=== PATIENT | female | born 1955 | race Caucasian/White ===

== ENCOUNTER 2018-10-13 23:44 | Emergency (ER) | payer SELFPAY ==
[~2018-10-13] VITALS: Ht 165.1 cm; Wt 63.5 kg
[2018-10-13 23:44] VITALS: BP_SYST 105
[2018-10-13] MEDS ORDERED: NACL 0.9% 1,000 ML IV ONE (23:47)
[2018-10-14] MEDS ORDERED: ONDANSETRON HCL 4 MG/2 ML VIAL IVP ONE
[2018-10-14] MEDS ORDERED: FOLIC ACID 1 MG, THIAMINE HCL 100 MG, MAGNESIUM SULFATE 1 GM, MVI 10 ML in NACL 0.9% 1,... IV ONE ×5
[2018-10-14] MEDS ORDERED: FOLIC ACID 5 MG/ML VIAL IV ONE (00:12)
[2018-10-14] MEDS ORDERED: MVI 10 ML VIAL IV ONE (00:12)
[2018-10-14] MEDS ORDERED: MAGNESIUM SULFATE 1 GM/2 ML VIAL ONE (00:12)
[2018-10-14 00:32] LABS: BASOPHILS # (AUTO) 0.1 K/uL (0.0-0.2); BASOPHILS % (AUTO) 1.3 % (0.0-2.0); EOSINOPHILS # (AUTO) 0.2 K/uL (0.0-0.4); EOSINOPHILS % (AUTO) 2.3 % (0.0-4.0); HEMATOCRIT 34.8 % (36-48); HEMOGLOBIN 11.8 g/dL (12.0-16.0); LYMPHOCYTES % (AUTO) 26.6 % (20.5-51.5); MEAN CORPUSCULAR HEMOGLOBIN 35 pg (27-31); MEAN CORPUSCULAR HGB CONC 34 % (32-36); MEAN CORPUSCULAR VOLUME 103 fL (79.0-98.0); MONOCYTES # (AUTO) 0.8 K/uL (0.0-1.0); MONOCYTES % (AUTO) 10.1 % (1.7-9.3); NEUTROPHILS # (AUTO) 4.5 K/uL (1.8-7.7); NEUTROPHILS % (AUTO) 59.7 % (40.0-70.0); PLATELET COUNT (AUTO) 318 K/uL (130-430); RED BLOOD CELL COUNT(AUTO) 3.38 MIL/uL (4.2-6.2); RED CELL DISTRIBUTION WIDTH 12.8 % (9.0-15.0); WHITE BLOOD COUNT (AUTO) 7.6 K/uL (4.8-10.8)
[2018-10-14 00:37] LABS: ANION GAP 15 (5-15); CALCIUM 7.9 mg/dL (8.4-11.0); CHLORIDE 107 mmol/L (98-107); CREATININE 0.78 mg/dL (0.55-1.30); GLUCOSE 81 mg/dL (70-99); POTASSIUM 3.2 mmol/L (3.5-5.1); SODIUM SERUM 143 mmol/L (136-145); UREA NITROGEN, BLOOD 7 mg/dL (8-21)
[2018-10-14 00:41] LABS: INR 0.9 (0.8-1.2); PROTHROMBIN TIME 9.7 SECS (9.5-12.5)
[2018-10-14 00:44] LABS: ALANINE AMINOTRANSFERASE 10 U/L (12-78); ALCOHOL, BLOOD 152 mg/dL (<10); AMYLASE 25 U/L (0-100); ASPARTATE AMINOTRANSFERASE 18 U/L (10-37); LIPASE 91 U/L (73-393); TOTAL BILIRUBIN 0.1 mg/dL (0.0-1.0)
[2018-10-14 00:45] LABS: GFR AFRICAN AMERICAN 97 mL/min (>90)
[2018-10-14 01:17] LABS: ACETAMINOPHEN < 1 ug/mL (1-30)
[2018-10-14 04:39] VITALS: BP_SYST 91
== END 2018-10-14 04:39 | disposition home or self-care (01) ==
LOC: SED 23:44
DX: F10.129 Alcohol abuse with intoxication, unspecified (principal); D64.9 Anemia, unspecified; R55 Syncope and collapse; R03.0 Elevated blood-pressure reading, without diagnosis of hypertension; I48.91 Unspecified atrial fibrillation; Y90.6 Blood alcohol level of 120-199 mg/100 ml
CPT/HCPCS: 36415; 71045; 80053; 82150; 82550; 83605; 83690; 84484; 85025; 85610; 85730; 87040; 93005; 96365; 96366; 96375; 99284; G0480; G0481; G0482; J2405; J3475; J3490; J7030